=== PATIENT | female | born 1970 | race Caucasian/White ===

== ENCOUNTER 2024-11-03 11:10 | Emergency (ER) | payer OTHER, SELFPAY ==
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
--- OUTSIDE RECORDS SUMMARY | 2024-11-03 11:14 | XMS_ITS | Clinical Summary ---
Author Organization [facility] al Address [address] [place] [address] Care Team Providers Care Unionmelt Operator Name Role Phone James Vasquez MD Primary Care Provider Lucila Kapadia MD Unavailable [phone] Allergies No known active allergies Medications atorvastatin (LIPITOR) 40 mg tabletIndicatio ns:hyperlipidem ia Take 1 tablet (40 mg total) by mouth every morning 2 02/15/2019 Active buPROPion SR (WELLBUTRIN SR) 150 mg 12 hr tabletIndicatio ns:Anxiety with Depression Take 1 tablet (150 mg total) by mouth 2 (two) times a day Active calcium carbonate-vitam in D3 (Calcium 600 + D,3,) 1500 mg (600 mg elemental) -200 units per tabletIndicatio ns:Vitamin D Deficiency Take 2 tablets by mouth every morning Active multivitamin capsuleIndicati ons:Vitamin Deficiency Prevention Take 1 capsule by mouth every morning Active acetaminophen (TYLENOL) 500 mg tabletIndicatio ns:Encounter for cosmetic surgery Take 2 tablets (1,000 mg total) by mouth every 6 (six) hours as needed for pain 60 tablet 12/03/2022 Active Active Problems Problem Noted Date Diagnosed Date Encounter for cosmetic procedure 11/23/2022 Varicose veins of leg with pain, right 9 Overview (06/07/2019): Added automatically from request for surgery [id number] Fracture of nasal bone 02/29/2016 Nasal congestion 02/29/2016 Facial injury 02/28/2016 Facial pain 02/28/2016 Deviated nasal septum 02/28/2016 Uterine leiomyoma 11/21/2015 Benign neoplasm of skin 11/06/2011 Hyperlipidemia Encounters Date Type Department Care Team Description 10/25/2024 9:20 AM CDT Office Visit [facility] Endocrinology Metabolism and Lipid [address] [place] [address] [place] [address] Eduardo Stewart MD Macrocytosis (Primary Dx); Hypothyroidism, unspecified type; Abnormal thyroid exam 09/25/2024 12:26 PM CDT - 09/25/2024 11:59 PM CDT Hospital Encounter [address] [address] Discharge Disposition: Discharge to home or self care 09/25/2024 11:30 AM CDT Lab [facility] [place] - Lab Collection [address] [facility] [facility] [address] [facility] [address] [place] [address] from Last 3 Months Immunizations Immunization Administration Dates Next Due Influenza, Trivalent, Cell C ulture-based MDCK, Preservative Free, Antibiotic Free, Intramuscular 04/13/2024 Surgical History Surgery Date Site/Laterality Comments [place] DELIVERY ONLY 06/21/2001 - 06/20/2002 Section - (Added by TW Conv) OTHER SURGICAL HISTORY 06/21/2019 - 06/20/2020 venectomy Medical History Medical History Date Comments Hyperlipidemia 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 with pain, right 9 Added automatically from request for surgery [id number] Nasal congestion 02/29/2016 Deviated nasal septum 02/28/2016 Family History Medical History Relation Name Comments Hypertension Father Family history of hypertension - (Added by TW Conv) Stroke Maternal Grandmother Hypertension Mother Family history of hypertension - (Added by TW Conv) Anesthesia problems Neg Hx Breast cancer Neg Hx Ovarian cancer Neg Hx Thyroid cancer Neg Hx Relation Name Status Comments Father Maternal Grandmother Mother Social History Tobacco Use Types Packs/Day Years Used Date Smoking Tobacco: Never Smokeless Tobacco: Never Tobacco Cessation:Counseling Given: Not Answered Alcohol Use Standard Drinks/Week Comments Yes 0 (1 standard drink = 0.6 oz pur e alcohol) rare AUDIT-C Answer Date Recorded Q1: How often do you have a drink containing alc ohol? 2-4 times a month 12/02/2022 Q2: How many drinks containi ng alcohol do you have on a typical day when you are drinking? 1 or 2 12/02/2022 Q3: How often do you have si x or more drinks on one occasion? Never 12/02/2022 Personal Safety Answer Date Recorded Have you ever been in or are you currently in a harmful physical or emotional relationship or is someone making you feel afraid or unsafe? Denies 12/09/2022 Comments No Sex and Gender Information Value Date Recorded Sex Assigned at Not on file Legal Sex Female 12:32 PM CONTRACTS INTERN Gender Identity Not on file Sexual Orientation Not on file Obstetrics History Para Term AB IAB SAB Ectopic Multiple Livin g Live Births 1 1 1 Date Outcome GA Total Labor Labor/2nd/3rd Weight Sex Type Anes PTL Amelia A1 A5 Name Clin Term Last Filed Vital Signs Vital Sign Reading Time Taken Comments Blood Pressure 116/73 10/25/2024 9:27 AM CDT Pulse 72 10/25/2024 9:27 AM CDT Temperature 36.8 C (98.2 F) 10/25/2024 9:27 AM CDT Respiratory Rate 16 12/09/2022 11:29 AM CDT Oxygen Saturation 96% 12/09/2022 11:29 AM CDT Inhaled Oxygen Concentration - - Weight 63 kg (138 lb 12.8 oz) 10/25/2024 9:27 AM CDT Height 167.6 cm (5' 6 ) 10/25/2024 9:27 AM CDT Body Mass Index 22.4 10/25/2024 9:27 AM CDT Plan of Treatment Health Maintenance Due Date Last Done Comments Cervical Cancer Screening 1970 Colon Cancer Screening-Colonoscopy 1970 Depression Screening 1970 DTaP/Tdap/Td Vaccine (1 - Tdap) 1981 Hepatitis B Screening 1988 Regular Well Visit/Exam 18-64 1988 Zoster Vaccine (1 of 2) 2020 Covid-19 Vaccine ( season) 2024 05/11/2021, 07/04/2020, 06/17/2020 Breast Cancer Screening-Mammogram 04/04/2025 04/04/2024, 11/27/2022, 05/08/2021, Additional history exists Influenza Vaccine Completed 04/13/2024 Hepatitis C Screening Completed 09/25/2024 Pneumococcal vaccine <65 Aged Out No longer eligible based on patient's age to complete this topic Medical Devices Implanted Type Area Montessori Program Director Device Identifier Shelf Expiration Date Model / Serial / Lot [employer] 12.1cm High Strength Cohesive Plus Smooth P4.4cm Moderate Plus [id number] - [id number] - [id number] Implanted:Qty: 1 on 12/09/2022 by Lucila Kapadia MD at [facility] Breast Right: Breast [employer] 07/14/2024 [id number] P / [id number] / [employer] 12.1cm High Strength Cohesive Plus Smooth P4.4cm Moderate Plus [id number] - [id number] - [id number] Implanted:Qty: 1 on 12/09/2022 by Lucila Kapadia MD at [facility] Left: Breast [employer] 11/22/2025 [id number] / [id number] / Procedures Procedure Name Priority Date/Time Associated Diagnosis Comments EGFR Routine 09/25/2024 11:35 AM CDT DIFFERENTIAL AUTO Routine 09/25/2024 11: 35 AM CDT T3, FREE Routine 09/25/2024 11:35 AM CDT T4, FREE Routine 09/25/2024 11:35 AM CDT TSH Routine 09/25/2024 11:35 AM CDT LIPID PANEL Routine 09/25/2024 11:35 AM CDT COMPREHENSIVE METABOLIC PANEL Routine 09/25/2024 11:35 AM CDT CBC WITH AUTO DIFFERENTIAL Routine 09/25/2024 11:35 AM CDT HEPATITIS C ANTIBODY Routine 09/25/2024 11:35 AM CDT SCREENING MAMMOGRAM BILATERAL W RONAK W IMPLANTS Schedule Routine, Read Routine (OP Routine) 04/04/2024 4:12 PM CDT Screening mammogram, encounter for from Last 3 Months or Most Recently Relevant to Health Maintenance Results * eGFR (09/25/2024 11:35 AM CDT) eGFR >90 >=60 mL/min/1. 73 m2 Comment: Interpretive Data Reference Interval Normal >/= 90 mL/min/1.73m2 Mildly decreased* 60 - 89 mL/min/1.73m2 Mildly to moderately decreased 45 - 59 mL/min/1.73m2 Moderately to severely decreased 30 - 44 mL/min/1.73m2 Severely decreased 15 - 29 mL/min/1.73m2 Kidney Failure < 15 mL/min/1.73m2 *Relative to young adult level Estimated glomerular filtration rate is determined by the 2020 CKD-EPI equation recommended by the National Kidney Foundation (A Unifying Approach to GFR Estimation: Recommendations of the NKF-ASK Task Force on Reassessing the Inclusion of Race in Diagnosing Kidney Disease, JASN 2020). The CKD-EPI equation should not be used for patients with unstable renal function and has not been validated in children and those over 70. Current interpretive data was last reviewed 2021. Blood 09/25/2024 11:3 5 AM CDT 09/25/2024 1:22 PM CDT us Notinfile Unknown LAB BLOOD ORDERABLES Final Res ult [facility] [place] [address] * Differential, auto (09/25/2024 11:35 AM CDT) Neutrophil abs 3.31 1.50 - 6.50 K/cumm Imm gran abs 0.01 0.00 - 0.10 K/cumm [facility] Lymphocyte abs 1.60 0.80 - 3.30 K/cumm [facility] Monocyte abs 0.42 0.20 - 0.80 K/cumm [facility] Eosinophil abs 0.06 0.00 - 0.50 K/cumm [facility] Basophil abs 0.04 0.00 - 0.10 K/cumm [facility] Neutrophil pct 60.9 % [facility] Comment: Interpretive Data Percent cell count reference ranges are not reported, since discordance with absolute values may lead to misinterpretation of CBC data. Current Interpretive Data was last revised on 2017. Imm gran pct 0.2 % [facility] Comment: Interpretive Data Percent cell count reference ranges are not reported, since discordance with absolute values may lead to misinterpretation of CBC data. Current Interpretive Data was last revised on 2017. Lymphocyte pct 29.4 % [facility] Comment: Interpretive Data Percent cell count reference ranges are not reported, since discordance with absolute values may lead to misinterpretation of CBC data. Current Interpretive Data was last revised on 2017. Monocyte pct 7.7 % [facility] Comment: Interpretive Data Percent cell count reference ranges are not reported, since discordance with absolute values may lead to misinterpretation of CBC data. Current Interpretive Data was last revised on 2017. Eosinophil pct 1.1 % [facility] Comment: Interpretive Data Percent cell count reference ranges are not reported, since discordance with absolute values may lead to misinterpretation of CBC data. Current Interpretive Data was last revised on 2017. Basophil pct 0.7 % [facility] Comment: Interpretive Data Percent cell count reference ranges are not reported, since discordance with absolute values may lead to misinterpretation of CBC data. Current Interpretive Data was last revised on 2017. Blood 09/25/2024 11:3 5 AM CDT 09/25/2024 1:08 PM CDT us Notinfile Unknown LAB BLOOD ORDERABLES Final Res ult [facility] Department [place] [address] * (ABNORMAL) CBC with auto differential (09/25/2024 11:35 AM CDT) [facility] WBC 5.44 3.80 - 9.90 K/cumm Hgb 15.6(H) 11.9 - 15.5 g/dL [facility] Hct 46.5(H) 35.6 - 45.5 % [facility] Plt 222 150 - 400 K/cumm [facility] MPV 10.9 9.1 - 12.3 fL [facility] RBC 4.79 3.90 - 5.20 M/cumm [facility] MCV 97.1(H) 81.3 - 96.4 fL [facility] MCH 32.6 27.1 - 33.3 pg [facility] MCHC 33.5 32.3 - 35.7 g/dL [facility] RDW CV 12.9 11.1 - 14.9 % [facility] RDW SD 46.0 35.7 - 48.1 fL [facility] NRBC abs 0.00 0.00 - 0.01 K/cumm [facility] Blood 09/25/2024 11:3 5 AM CDT 09/25/2024 1:08 PM CDT us Notinfile Unknown LAB BLOOD ORDERABLES Final Res ult Performing Organization Address City/State/[facility] Co de Phone Number [facility] Department [place] [address] * Hepatitis C antibody Blood (09/25/2024 11:35 AM CDT) [facility] Hep C Ab Nonreactive Nonreactive Comment:Antibodies to HCV no t detected. Does NOT exclude the possibility of recent exposure to HCV. Current interpretive data was last revised on 22 Blood 09/25/2024 11:3 5 AM CDT 09/25/2024 1:09 PM CDT us Notinfile Unknown LAB MICROBIOLOGY - GENERAL ORD ERABLES Final [facility] [place] [address] * T3, free (09/25/2024 11:35 AM CDT) Free T3 2.0 2.0 - 4.4 pg/mL Blood 09/25/2024 11:3 5 AM CDT 09/25/2024 1:08 PM CDT us Notinfile Unknown LAB BLOOD ORDERABLES Final Res ult Performing Organization Address [facility] [place] [address] * TSH (09/25/2024 11:35 AM CDT) Thyroid Stimulating Hormone 0.64 0.30 - 4.20 mcIUnit/mL Blood 09/25/2024 11:3 5 AM CDT 09/25/2024 1:08 PM CDT us Notinfile Unknown LAB BLOOD ORDERABLES Final Res ult Performing Organization Address [facility] de Phone Number [facility] [place] [address] * (ABNORMAL) T4, free (09/25/2024 11:35 AM CDT) Free T4 0.87(L) 0.90 - 1.70 ng/dL Blood 09/25/2024 11:3 5 AM CDT 09/25/2024 1:08 PM CDT us Notinfile Unknown LAB BLOOD ORDERABLES Final Res ult Performing Organization Address [facility] Co de Phone Number [facility] [place] [address] * Lipid panel (09/25/2024 11:35 AM CDT) Cholesterol 169 30 - 199 mg/dL Comment: Interpretive Data Ages < or = 19 years Acceptable: <170 mg/dL Borderline high: 170-199 mg/dL High: >or= 200 mg/dL Ages > or = 20 years Desirable: <200 mg/dL Borderline high: 200-239 mg/dL High: >or= 240 mg/dL Literature References: 1. Expert Panel on Integrated Guidelines for Cardiovascular Health and Risk Reduction in Children and Adolescents. Pediatrics 2011;128:S213 2. NCEP Expert Panel. Circulation 2004;110:227 Current Interpretive Data was last revised on 2018. Triglycerides 51 <=149 mg/dL [facility] Comment: Interpretive Data Ages < or = 9 years Acceptable: <75 mg/dL Borderline high: 75-99 mg/dL High: >or= 100 mg/dL Ages 10 to 20 years Acceptable: <90 mg/dL Borderline high: 90-129 mg/dL High: >or= 130 mg/dL Ages > or = 20 years Desirable: <150 mg/dL Borderline high: 150-199 mg/dL High: 200-499 mg/dL Very high: >or= 499 mg/dL Literature References: 1. Expert Panel on Integrated Guidelines for Cardiovascular Health and Risk Reduction in Children and Adolescents. Pediatrics 2011;128:S213 2. NCEP Expert Panel. Circulation 2004;110:227 Current Interpretive Data was last revised on 2018. HDL 73 >=40 mg/dL [facility] Comment: Interpretive Data Ages < or = 19 years Acceptable: >45 mg/dL Borderline low: 40-45 mg/dL Low: <40 mg/dL Ages > or = 20 years Desirable: >or= 60 mg/dL Low: <40 mg/dL Literature References: 1. Expert Panel on Integrated Guidelines for Cardiovascular Health and Risk Reduction in Children and Adolescents. Pediatrics 2011;128:S213 2. NCEP Expert Panel. Circulation 2004;110:227 Current Interpretive Data was last revised on 2018. LDL, calculated 86 <=129 mg/dL [facility] Comment: Interpretive Data Ages < or = 19 years Acceptable: <110 mg/dL Borderline high: 110-129 mg/dL High: >or= 130 mg/dL Ages > or = 20 years Optimal: <100 mg/dL Near optimal: 100-129 mg/dL Borderline high: 130-159 mg/dL High: >160 mg/dL Calculated using the Brian LDL-C estimating equation. This equation was implemented on 2024. Prior to this date LDL-C was estimated using the Friedewald equation. Literature References: 1. Expert Panel on Integrated Guidelines for Cardiovascular Health and Risk Reduction in Children and Adolescents. Pediatrics 2011;128:S213 2. NCEP Expert Panel. Circulation 2004;110:227 3. Brian Moy et al. ALY Cardiol. 2020 October 19;5(5):540-548. doi: 10.1001/jamacardio.2020.0013 Current Interpretive Data was last revised on 2024. Non-HDL Cholesterol 96 mg/dL [facility] Comment: Interpretive Data Ages < or = 19 years Acceptable: <120 mg/dL Borderline high: 120-144 mg/dL High: >145 mg/dL Ages > or = 20 years When triglycerides are >200 mg/dL, Non-HDL cholesterol is a secondary target of therapy with treatment goals that are 30 mg/dL greater than the LDL cholesterol target. Literature References: 1. Expert Panel on Integrated Guidelines for Cardiovascular Health and Risk Reduction in Children and Adolescents. Pediatrics 2011;128:S213 2. NCEP Expert Panel. Circulation 2004;110:227 Current Interpretive Data was last revised on 2018. Chol/HDL ratio 2 [facility] Blood 09/25/2024 11:3 5 AM CDT 09/25/2024 1:08 PM CDT us Notinfile Unknown LAB BLOOD ORDERABLES Final Res ult [facility] Department [place] [address] * Comprehensive metabolic panel (09/25/2024 11:35 AM CDT) Sodium 143 135 - 145 mmol/L Potassium, pl 3.8 3.3 - 4.9 mmol/L [facility] Chloride 104 97 - 110 mmol/L [facility] CO2 31 22 - 32 mmol/L [facility] Anion gap 8 2 - 15 mmol/L [facility] BUN 9 6 - 25 mg/dL [facility] Creatinine 0.75 0.60 - 1.10 mg/dL [facility] Glucose 85 70 - 199 mg/dL [facility] Comment: Interpretive Data Fasting glucose >/= 126 mg/dl is diagnostic for diabetes. Fasting is defined as no caloric intake for at least 8 hours. Fasting glucose between 100 mg/dl to 125 mg/dl is diagnostic of prediabetes. In a patient with classic symptoms of hyperglycemia or hyperglycemic crisis, a random glucose >/= 200 mg/dl is diagnostic for diabetes. In the absence of unequivocal hyperglycemia, results should be confirmed by repeat testing. The classification and Diagnosis of Diabetes Diabetes Care 202; 46: S19-S40. Current interpretive data was last revised 2022. Calcium 9.2 8.5 - 10.3 mg/dL [facility] Bilirubin, total 0.5 0.1 - 1.2 mg/dL [facility] Protein, pl 7.4 6.5 - 8.5 g/dL [facility] Albumin 4.3 3.5 - 5.0 g/dL [facility] Alk phos 56 40 - 130 Units/L [facility] ALT 25 7 - 45 Units/L [facility] AST 28 10 - 45 Units/L [facility] Blood 09/25/2024 11:3 5 AM CDT 09/25/2024 1:08 PM CDT us Notinfile Unknown LAB BLOOD ORDERABLES Final Res ult [facility] Department [place] [address] * Screening Mammogram Bilateral W Ronak W Implants (04/04/2024 4:12 PM CDT) Anatomical Region Laterality Modality Breast Bilateral Mammography Narrative 04/07/2024 1:37 PM CDT Mammogram Technique: Bilateral Digital Breast Tomosynthesis, Bilateral C-view 2D Screening mammogram. Views obtained: bilateral craniocaudal; bilateral craniocaudal implant displaced; bilateral mediolateral oblique; and bilateral mediolateral oblique implant displaced. Computer Aided Detection was performed. Mammogram Findings: No prior films were compared. The breasts are extremely dense, which lowers the sensitivity of mammography. There are bilateral sub-pectoral silicone gel implants. There is no suspicious abnormality in either breast. Impression: There is no mammographic evidence of malignancy. Annual screening mammography is recommended. Consider breast MRI for supplemental screening given the patient's extremely dense breast tissue. OVERALL FINAL ASSESSMENT: BI-RADS CATEGORY 1: Negative. Procedure Note Luciana Zuluaga MD - 04/07/2024 Mammogram Technique: Bilateral Digital Breast Tomosynthesis, Bilateral C-view 2D Screening mammogram. Views obtained: bilateral craniocaudal; bilateralcraniocaudal implant displaced; bilateral mediolateral oblique; and bilateral mediolateral oblique implant displaced. Computer Aided Detection was performed. Mammogram Findings: No prior films were compared. The breasts are extremely dense, which lowers the sensitivity of mammography. There are bilateral sub-pectoral silicone gel implants. There is no suspicious abnormality in either breast. Impression: There is no mammographic evidence of malignancy. Annual screening mammography is recommended. Consider breast MRI for supplemental screening given the patient's extremely dense breasttissue. OVERALL FINAL ASSESSMENT: BI-RADS CATEGORY 1: Negative. us Self Screening Mammogram IMG MAMMO PROCEDURES Fi nal Result from Last 3 Months or Most Recently Relevant to Health Maintenance Insurance [employer] Member Subscriber Plan / Payer (Ef fective 2021-Present) Name:Dayami Romero Relation to Subscriber:Self Name:Dayami Romero Payer ID:[id number] (NAIC) Type:[facility] [employer] Address: [place] [phone] Member Subscriber Plan / Payer (Ef fective 2021-Present) Name:Dayami Romero Relation to Subscriber:Self Name:Dayami Romero Payer ID:[id number] (NAIC) Type:[employer] Address: [place] [phone] Care Teams Unionmelt Operator Relationship Specialty Start Date End Date James Vasquez MD PCP - General 09/16/16 Lucila Kapadia MD [address] [facility] [address] [place] [address] Referring Physician Plastic Surgery 12/09/22
--- OUTSIDE RECORDS SUMMARY | 2024-11-03 11:14 | XMS_ITS | Referral Summary ---
Author Organization [facility] al Address [address] [place] [address] Care Team Providers Care Devulcanizer Tender Name Role Phone James Vasquez MD Primary Care Provider Lucila Kapadia MD Unavailable [phone] Encounters Date Type Department Care Team Description 10/25/2024 9:20 AM CDT Office Visit [facility] Endocrinology Metabolism and Lipid [address] 13th [place] [address] [place] [address] Eduardo Stewart MD Macrocytosis (Primary Dx); Hypothyroidism, unspecified type; Abnormal thyroid exam 09/25/2024 12:26 PM CDT - 09/25/2024 11:59 PM CDT Hospital Encounter [facility] [address] [place] [address] Discharge Disposition: Discharge to home or self care 09/25/2024 11:30 AM CDT Lab [facility] - Lab Collection [address] [facility] [address] [place] [address] from Last 3 Months Allergies No known active allergies Medications atorvastatin [...] (06/07/2019): Added automatically from request for surgery [id number] Fracture of nasal bone 02/29/2016 Nasal congestion 02/29/2016 Facial injury 02/28/2016 Facial pain 02/28/2016 Deviated nasal septum 02/28/2016 Uterine leiomyoma 11/21/2015 Benign neoplasm of skin 11/06/2011 Hyperlipidemia Immunizations Immunization Administration Dates Next Due Influenza, Trivalent, Cell C ulture-based MDCK, Preservative Free, Antibiotic Free, Intramuscular 04/13/2024 Social History Tobacco Use Types Packs/Day Years [...] on file 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 Gender Identity Not on file Sexual Orientation Not on file Last Filed Vital Signs Vital Sign Reading [...] 10/25/2024 9:27 AM CDT Plan of Treatment Not on file Medical Devices Implanted Type Area Dispatch Lead Device Identifier Shelf Expiration Date Model / Serial / Lot [employer] 12.1cm High Strength Cohesive Plus Smooth P4.4cm Moderate Plus [id number] - [id number] - [id number] Implanted:Qty: 1 on 12/09/2022 by Lucila Kapadia MD at [facility] Breast Right: Breast [employer] 07/14/2024 [id number] P / [id number] / [employer] 12.1cm High Strength Cohesive Plus Smooth P4.4cm Moderate Plus [id number] - [id number] - [id number] Implanted:Qty: 1 on 12/09/2022 by Lucila Kapadia MD at [facility] Left: Breast [employer] 11/22/2025 [id number] P / [id number] / Procedures Procedure Name Priority Date/Time Associated [...] LAB BLOOD ORDERABLES Final Res ult [facility] Department [place] [address] * Differential, auto (09/25/2024 11:35 AM CDT) Neutrophil abs 3.31 1.50 - 6.50 K/cumm Imm gran abs 0.01 0.00 - 0.10 K/cumm [facility] Lymphocyte abs 1.60 0.80 - 3.30 K/cumm [facility] Monocyte abs 0.42 0.20 - 0.80 K/cumm [facility] Eosinophil abs 0.06 0.00 - 0.50 K/cumm [facility] Basophil abs 0.04 0.00 - 0.10 K/cumm [facility] Neutrophil pct 60.9 % [facility] Comment: Interpretive Data Percent cell count reference ranges are not reported, since discordance with absolute values may lead to misinterpretation of CBC data. Current Interpretive Data was last revised on 2017. Imm gran pct 0.2 % [facility] Comment: Interpretive Data Percent cell count reference ranges are not reported, since discordance with absolute values may lead to misinterpretation of CBC data. Current Interpretive Data was last revised on 2017. Lymphocyte pct 29.4 % [facility] Comment: Interpretive Data Percent cell count reference ranges are not reported, since discordance with absolute values may lead to misinterpretation of CBC data. Current Interpretive Data was last revised on 2017. Monocyte pct 7.7 % [facility] Comment: Interpretive Data Percent cell count reference ranges are not reported, since discordance with absolute values may lead to misinterpretation of CBC data. Current Interpretive Data was last revised on 2017. Eosinophil pct 1.1 % [facility] Comment: Interpretive Data Percent cell count reference ranges are not reported, since discordance with absolute values may lead to misinterpretation of CBC data. Current Interpretive Data was last revised on 2017. Basophil pct 0.7 % [facility] Comment: Interpretive Data Percent cell count reference ranges are not reported, since discordance with absolute values may lead to misinterpretation of CBC data. Current Interpretive Data was last revised on 2017. Blood 09/25/2024 11:3 5 AM CDT 09/25/2024 1:08 PM CDT us Notinfile Unknown LAB BLOOD ORDERABLES Final Res ult Performing Organization Address City/[facility]/ZIP Co de Phone Number [facility] Department [place] [address] * (ABNORMAL) CBC with auto differential (09/25/2024 11:35 AM CDT) WBC 5.44 3.80 - 9.90 K/cumm Hgb 15.6(H) 11.9 - 15.5 g/dL [facility] Hct 46.5(H) 35.6 - 45.5 % [facility] Plt 222 150 - 400 K/cumm [facility] MPV 10.9 9.1 - 12.3 fL [facility] RBC 4.79 3.90 - 5.20 M/cumm [facility] MCV 97.1(H) 81.3 - 96.4 fL [facility] MCH 32.6 27.1 - 33.3 pg [facility] MCHC 33.5 32.3 - 35.7 g/dL [facility] RDW CV 12.9 11.1 - 14.9 % [facility] RDW SD 46.0 35.7 - 48.1 fL [facility] NRBC abs 0.00 0.00 - 0.01 K/cumm [facility] Blood 09/25/2024 11:3 5 AM CDT 09/25/2024 1:08 PM CDT us Notinfile Unknown LAB BLOOD ORDERABLES Final Res ult [facility] [place] [address] * Hepatitis C antibody Blood (09/25/2024 11:35 AM CDT) Pathologist [facility] Hep C Ab Nonreactive Nonreactive Comment:Antibodies to HCV no t detected. Does NOT exclude the possibility of recent exposure to HCV. Current interpretive data was last revised on 22 Blood 09/25/2024 11:3 5 AM CDT 09/25/2024 1:09 PM CDT us Notinfile Unknown LAB MICROBIOLOGY - GENERAL ORD ERABLES Final Result Performing Organization Address City/[facility] Co de Phone Number [facility] [place] [address] * T3, free (09/25/2024 11:35 AM CDT) Free T3 2.0 2.0 - 4.4 pg/mL Blood 09/25/2024 11:3 5 AM CDT 09/25/2024 1:08 PM CDT us Notinfile Unknown LAB BLOOD ORDERABLES Final Res ult Performing Organization Address [facility] Co de Phone Number [facility] [place] [address] * TSH (09/25/2024 11:35 AM CDT) Thyroid Stimulating Hormone 0.64 0.30 - 4.20 mcIUnit/mL Blood 09/25/2024 11:3 5 AM CDT 09/25/2024 1:08 PM CDT us Notinfile Unknown LAB BLOOD ORDERABLES Final Res ult Performing Organization Address [facility] Co de Phone Number [facility] [place] [address] * (ABNORMAL) T4, free (09/25/2024 11:35 AM CDT) Free T4 0.87(L) 0.90 - 1.70 ng/dL Blood 09/25/2024 11:3 5 AM CDT 09/25/2024 1:08 PM CDT us Notinfile Unknown LAB BLOOD ORDERABLES Final Res ult [facility] Department [place] [address] * Lipid panel (09/25/2024 11:35 AM CDT) [...] on 2018. Triglycerides 51 <=149 mg/dL [facility] Comment: Interpretive Data Ages < or [...] revised on 2018. HDL 73 >=40 mg/dL [facility] Comment: Interpretive Data Ages < or [...] 2018. LDL, calculated 86 <=129 mg/dL [facility] Comment: Interpretive Data Ages < or = [...] 3. Brian Moy et al. ALY Cardiol. 2019October 19;5(5):540-548. doi: 10.1001/[email or web address].2020.0013 Current Interpretive Data was last revised on 2024. Non-HDL Cholesterol 96 mg/dL [facility] Comment: Interpretive Data Ages < or = [...] last revised on 2018. Chol/HDL ratio 2 [facility] Blood 09/25/2024 11:3 5 AM CDT 09/25/2024 1:08 PM CDT us Notinfile Unknown LAB BLOOD ORDERABLES Final Res ult [facility] Department [place] [address] * Comprehensive metabolic panel (09/25/2024 11:35 AM CDT) Sodium 143 135 - 145 mmol/L Potassium, pl 3.8 3.3 - 4.9 mmol/L [facility] Chloride 104 97 - 110 mmol/L [facility] CO2 31 22 - 32 mmol/L [facility] Anion gap 8 2 - 15 mmol/L [facility] BUN 9 6 - 25 mg/dL [facility] Creatinine 0.75 0.60 - 1.10 mg/dL [facility] Glucose 85 70 - 199 mg/dL [facility] Comment: Interpretive Data Fasting glucose [...] classification and Diagnosis of Diabetes Diabetes Care 2021; 46: S19-S40. Current interpretive data was last revised 2022. Calcium 9.2 8.5 - 10.3 mg/dL [facility] Bilirubin, total 0.5 0.1 - 1.2 mg/dL [facility] Protein, pl 7.4 6.5 - 8.5 g/dL [facility] Albumin 4.3 3.5 - 5.0 g/dL [facility] Alk phos 56 40 - 130 Units/L [facility] ALT 25 7 - 45 Units/L [facility] AST 28 10 - 45 Units/L [facility] Blood 09/25/2024 11:3 5 AM CDT 09/25/2024 1:08 PM CDT us Notinfile Unknown LAB BLOOD ORDERABLES Final Res ult [facility] [address] [facility] Department [place] [address] * Screening Mammogram Bilateral W Ronak W [...] Most Recently Relevant to Health Maintenance Insurance [facility] EM[employer]YE[employer] [facility] HMO/PPO Address: [address] [place] [address] [facility] HMO/PPO Address: [address] [address] [place] [address] [facility] HMO/PPO Address: [address] [place] [address] Care Teams Devulcanizer Tender Relationship Specialty Start Date End Date James Vasquez MD PCP - General 09/16/16 Lucila Kapadia MD [address] [address] Referring Physician Plastic Surgery 12/09/22
[2024-11-03 11:26] VITALS: BP 150/98; PULSE 72; RESP 16; TEMP 36.4; O2SAT 100
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
--- OUTSIDE RECORDS SUMMARY | 2024-11-03 13:33 | XMS_ITS | Referral Summary ---
Author Organization [facility] al Address [address] [place] [address] Care Team Providers Care Supply Chain Associate Name Role Phone James Vasquez MD Primary Care Provider [phone] Lucila Kapadia MD Unavailable [phone] Encounters Date Type Department Care Team Description 10/25/2024 9:20 AM CDT Office Visit [facility] Endocrinology Metabolism and Lipid [address] [place] [address] [place] [address] Eduardo Stewart MD Macrocytosis (Primary Dx); Hypothyroidism, unspecified type; Abnormal thyroid exam 09/25/2024 12:26 PM CDT - 09/25/2024 11:59 PM CDT Hospital Encounter [facility] [address] [place] [address] Discharge Disposition: Discharge to home or self care 09/25/2024 11:30 AM CDT Lab [facility] - Lab Collection [address] [facility] [place] [address] from Last 3 Months Allergies No known [...] (06/07/2019): Added automatically from request for surgery [id number] Fracture of nasal bone 02/29/2016 Nasal congestion [...] on file 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 Gender Identity Not on file Sexual Orientation [...] on file Medical Devices Implanted Type Area Roll Up Helper Device Identifier Shelf Expiration Date Model / Serial / Lot [employer] 12.1cm High Strength Cohesive Plus Smooth P4.4cm Moderate Plus [id number] - [id number] - [id number] Implanted:Qty: 1 on 12/09/2022 by Lucila Kapadia MD at [facility] Breast Right: Breast [employer] 07/14/2024 [id number] P / [id number] / [employer] 12.1cm High Strength Cohesive Plus Smooth P4.4cm Moderate Plus [id number] - [id number] - [id number] Implanted:Qty: 1 on 12/09/2022 by Lucila Kapadia MD at [facility] Left: Breast [employer] 11/22/2025 [id number] P / [id number] / Procedures Procedure Name Priority Date/Time Associated [...] LAB BLOOD ORDERABLES Final Res ult [facility] [place] [address] * Differential, auto (09/25/2024 11:35 AM CDT) Neutrophil abs 3.31 1.50 - 6.50 K/cumm Imm gran abs 0.01 0.00 - 0.10 K/cumm [facility] Lymphocyte abs 1.60 0.80 - 3.30 K/cumm [facility] Monocyte abs 0.42 0.20 - 0.80 K/cumm [facility] Eosinophil abs 0.06 0.00 - 0.50 K/cumm [facility] Basophil abs 0.04 0.00 - 0.10 K/cumm [facility] Neutrophil pct 60.9 % [facility] Comment: Interpretive Data Percent cell count reference ranges are not reported, since discordance with absolute values may lead to misinterpretation of CBC data. Current Interpretive Data was last revised on 2017. Imm gran pct 0.2 % [facility] Comment: Interpretive Data Percent cell count reference ranges are not reported, since discordance with absolute values may lead to misinterpretation of CBC data. Current Interpretive Data was last revised on 2017. Lymphocyte pct 29.4 % [facility] Comment: Interpretive Data Percent cell count reference ranges are not reported, since discordance with absolute values may lead to misinterpretation of CBC data. Current Interpretive Data was last revised on 2017. Monocyte pct 7.7 % [facility] Comment: Interpretive Data Percent cell count reference ranges are not reported, since discordance with absolute values may lead to misinterpretation of CBC data. Current Interpretive Data was last revised on 2017. Eosinophil pct 1.1 % [facility] Comment: Interpretive Data Percent cell count reference ranges are not reported, since discordance with absolute values may lead to misinterpretation of CBC data. Current Interpretive Data was last revised on 2017. Basophil pct 0.7 % [facility] Comment: Interpretive Data Percent cell count reference ranges are not reported, since discordance with absolute values may lead to misinterpretation of CBC data. Current Interpretive Data was last revised on 2017. Blood 09/25/2024 11:3 5 AM CDT 09/25/2024 1:08 PM CDT us Notinfile Unknown LAB BLOOD ORDERABLES Final Res ult Performing Organization Address City/[facility]/ZIP Co de Phone Number [facility] [place] [address] * (ABNORMAL) CBC with auto differential (09/25/2024 11:35 AM CDT) WBC 5.44 3.80 - 9.90 K/cumm Hgb 15.6(H) 11.9 - 15.5 g/dL [facility] Hct 46.5(H) 35.6 - 45.5 % [facility] Plt 222 150 - 400 K/cumm [facility] MPV 10.9 9.1 - 12.3 fL [facility] RBC 4.79 3.90 - 5.20 M/cumm [facility] MCV 97.1(H) 81.3 - 96.4 fL [facility] MCH 32.6 27.1 - 33.3 pg [facility] MCHC 33.5 32.3 - 35.7 g/dL [facility] RDW CV 12.9 11.1 - 14.9 % [facility] RDW SD 46.0 35.7 - 48.1 fL [facility] NRBC abs 0.00 0.00 - 0.01 K/cumm [facility] Blood 09/25/2024 11:3 5 AM CDT 09/25/2024 1:08 PM CDT us Notinfile Unknown LAB BLOOD ORDERABLES Final Res ult [facility] [place] [address] * Hepatitis C antibody Blood (09/25/2024 11:35 AM CDT) Pathologist [facility] Hep C Ab Nonreactive Nonreactive Comment:Antibodies to HCV no t detected. Does NOT exclude the possibility of recent exposure to HCV. Current interpretive data was last revised on 22 Blood 09/25/2024 11:3 5 AM CDT 09/25/2024 1:09 PM CDT us Notinfile Unknown LAB MICROBIOLOGY - GENERAL ORD ERABLES Final Result Performing Organization Address City/[facility] Co de Phone Number [facility] [place] [address] * T3, free (09/25/2024 11:35 AM CDT) Free T3 2.0 2.0 - 4.4 pg/mL Blood 09/25/2024 11:3 5 AM CDT 09/25/2024 1:08 PM CDT us Notinfile Unknown LAB BLOOD ORDERABLES Final Res ult Performing Organization Address [facility] Co de Phone Number [facility] [place] [address] * TSH (09/25/2024 11:35 AM CDT) Thyroid Stimulating Hormone 0.64 0.30 - 4.20 mcIUnit/mL Blood 09/25/2024 11:3 5 AM CDT 09/25/2024 1:08 PM CDT us Notinfile Unknown LAB BLOOD ORDERABLES Final Res ult Performing Organization Address [facility] Co de Phone Number [facility] [place] [address] * (ABNORMAL) T4, free (09/25/2024 11:35 AM CDT) Free T4 0.87(L) 0.90 - 1.70 ng/dL Blood 09/25/2024 11:3 5 AM CDT 09/25/2024 1:08 PM CDT us Notinfile Unknown LAB BLOOD ORDERABLES Final Res ult [facility] [place] [address] * Lipid panel (09/25/2024 11:35 AM CDT) [...] on 2018. Triglycerides 51 <=149 mg/dL [facility] Comment: Interpretive Data Ages < or = [...] on 2018. HDL 73 >=40 mg/dL [facility] Comment: Interpretive Data Ages < or = [...] last revised on 2018. Chol/HDL ratio 2 [facility] Blood 09/25/2024 11:3 5 AM CDT 09/25/2024 1:08 PM CDT us Notinfile Unknown LAB BLOOD ORDERABLES Final Res ult [facility] [place] [address] * Comprehensive metabolic panel (09/25/2024 11:35 AM CDT) Sodium 143 135 - 145 mmol/L Potassium, pl 3.8 3.3 - 4.9 mmol/L [facility] Chloride 104 97 - 110 mmol/L [facility] CO2 31 22 - 32 mmol/L [facility] Anion gap 8 2 - 15 mmol/L [facility] BUN 9 6 - 25 mg/dL [facility] Creatinine 0.75 0.60 - 1.10 mg/dL [facility] Glucose 85 70 - 199 mg/dL [facility] Comment: Interpretive Data Fasting glucose >/= 126 [...] Calcium 9.2 8.5 - 10.3 mg/dL [facility] Bilirubin, total 0.5 0.1 - 1.2 mg/dL [facility] Protein, pl 7.4 6.5 - 8.5 g/dL [facility] Albumin 4.3 3.5 - 5.0 g/dL [facility] Alk phos 56 40 - 130 Units/L [facility] ALT 25 7 - 45 Units/L [facility] AST 28 10 - 45 Units/L [facility] Blood 09/25/2024 11:3 5 AM CDT 09/25/2024 1:08 PM CDT us Notinfile Unknown LAB BLOOD ORDERABLES Final Res ult [facility] One [facility] [place] [address] * Screening Mammogram Bilateral W Ronak W [...] Most Recently Relevant to Health Maintenance Insurance [facility] [employer] [facility] H[facility]/PPO Address: [address] [place] [address] [facility] H[employer]/PPO Address: [address] [address] [place] [address] [facility] H[facility]/PPO Address: [address] [place] [address] Care Teams Supply Chain Associate Relationship Specialty Start Date End Date James Vasquez MD PCP - General 09/16/16 Lucila Kapadia MD [address] [address] Referring Physician Plastic Surgery 12/09/22
--- OUTSIDE RECORDS SUMMARY | 2024-11-03 13:33 | XMS_ITS | Data Portability ---
Author Organization [facility] Address [address] [place] [address] Care Team Providers Care Ribbon Cutter Name Role Phone АННА FISCHER Primary Care Provider Assessment Encounter Date Assessment Date Assessment LastModified by Organization Details LastModified Time 03/25/2022 03/25/2022 Annual gynecological exam performed. Patient will come back in a year unless there are new symptoms. Not available 03/25/2022 18:27:40 06/30/2023 06/30/2023 Annual gynecological exam performed. Patient will come back in a year unless there are new symptoms. Not available 06/30/2023 17:21:17 Plan of Treatment Reminders Order Date Submit Date Provider Last Modified By Organization Details Last Modified Time Details Appointments None recorded. Lab hormone panel, serum or plasma 2023 024 [facility] (Lab), [address], [place], [address], 4 08:15:15 hormone panel, serum or plasma 2021 022 [facility] (Lab), [address], [place], [address], 2 22:49:53 testosteron e free/testos terone total, ratio, serum 2021 022 [facility] (Lab), [address], [place], [address], 22:49:54 progesteron e, serum 2021 [facility] (Lab), [address], [place], [address], 22:49:53 Referral None recorded. Procedures None recorded. Surgeries None recorded. Imaging None recorded. Medication Orders estradiol 1 mg tablet 2023 024 [email or web address] [facility] [address] [place], [address], 18:21:44 testosteron e cypionate 100 mg/mL intramuscul ar oil 2021 [facility] [address] [place], [address], 19:38:01 Patient TargetsNo targets recorded. Patient InstructionsNo instructions recorded. Reason for Referral None Reported. Results Created Date Observation Date Name Description Value Unit Range Abnormal Flag Note LastModifiedBy Organization Detail LastModifiedTime 03/25/2003/25/2022 IMAGE GUIDE D PAP AND HPV REGAR DLESS image guided Pap, HPV regardless of Pap result SEE RESULT S BELOW CASE REPOR T: Cytol ogy Gynec ologi georgina Repor t Case: [id number] Autho rialexusn g Provi desiree: Marii Edwards MD Colle cted: 03/25 190 Order ing Locat ion: [place] Patho logy Recei corina: 03/26 194 First Scree n: Nicolle Cameron ica Rescr een: Brenda anLolis Speci men: Scree sandi Pap - Image d, Cervi x STATE MENT OF ADEQU ACY: Satis facto ry for evalu ation Trans forma tion zone compo nent absen t The absen ce of an endoc ervic al compo nent was confi rmed by an addit ional scree ner. FINAL DIAGN OSIS: Negat robert for Intra epith elial Henrique caban or Malig jojo (NIL) . Elect yung hou dillon d by Lolis Thompson on 04/01 at 7:02 PM ----- ----- ----- ----- ----- ----- ----- ----- ----- ----- ----- ----- ----- ----- ----- ----- ----- ---- HPV RESUL TS: HPV mRNA E6/E7 : No HPV mRNA Detec phyllis NOTE: This high risk HPV mRNA assay detec ts fourt een high- risk HPV types (16, 18, 31, 33, 35, 39, 45, 51, 52, 56, 58, 59, 66, 68) witho ut diffe renti ation . COMME NT: Note: This speci men was revie wed by a Cytot echno logis t and/o r Patho logis t (as indic ated in this repor t) after evalu ation using the Thinp rep Imagi ng Syste m. [facility] MAT[facility] N: Menst rual Statu s: LMP (if appli cable ): Clini georgina Histo ry/Pr eviou s Pap: Type of Neopl kelton (if appli cable ): Signi fican t Clini georgina Findi ngs: Other Histo ry: Hormo rudy (if appli cable ): PAP EDUCA JESSICA L NOTE: The Pap Test is a scree sandi test with an inher ent false negat robert rate. Liqui d-bas ed sampl ing may decre ase, but will not elimi ariane, false negat robert resul ts. A negat robert resul t does not precl ude the prese nce and/o r devel opmen t of disea se, since the prese nce of abnor mal cells in the sampl e depen ds on the locat ion of the lesio n and sampl ing techn ique. Geovany nued regul ar scree sandi is the best metho d of cance r preve ntion . If repor phyllis cytol ogic findi ng do not corre late with physi georgina and/o r histo rical findi ngs, fanta akins inves tigat ion is recom shawn d, as zarinai trevor funez nted. Not Available [facility] [address] [place], [address], 04/01/2022 20:05:18 03/25/20 22 03/25/2022 PROGE STERO NE progesterone 0.22 NG/mL This assay was perfo rmed using [employer] Cor[employer] ratio n reage nts and test kits. Value s obtai larissa with other assay metho ds or kits canno t be used inter [facility] . Femal e Proge stero ne Range s: Folli cular phase 0.06- 0.89 ng/mL Ovula tion phase 0.12- 12.00 ng/mL Lutea l phase 1.83- 23.90 ng/mL Postm enopa usal< 0.05- 0.13 ng/mL Healt hy Pregn ant Women 1st Trime ster1 1.0-4 4.30 2nd Trime ster2 5.40- 83.30 3rd Trime ster5 8.70- 214.0 0 Not Available [facility] [address] [place] [address], [address], 04/01/2022 22:49:52 03/25/20 22 03/25/2022 FSH, LH, ESTRA DIOL estradiol 108.0 pg/mL This assay was perfo rmed using [employer] ratio n reage nts and test kits. Value s obtai larissa with other assay metho ds or kits canno t be used inter [facility] . Femal e Estra diol Range s: Folli cular phase 12.4- 233 pg/mL Ovula tion phase 41.0- 398 pg/mL Lutea l phase 22.3- 341 pg/mL Postm enopa usal< 5-138 pg/mL Healt hy Pregn ant Women 1st Trime ster1 54-32 43 pg/mL 2nd Trime ster1 561-2 1280 pg/mL 3rd Trime ster8 525-> 71228 pg/mL Not Available [facility] Infect[facility] [address] [place], [place] [address], [place], [address], 04/01/2022 22:49:53 03/25/20 22 03/25/2022 FSH, LH, ESTRA DIOL FSH 42.1 mIU/m L This assay was perfo rmed using [employer] ratio n reage nts and test kits. Value s obtai larissa with other assay metho ds or kits canno t be used inter [facility] . Femal es Folli cular : 3.5-1 2.5 mIU/m L Ovula tion: 4.7-2 1.5 mIU/m L Lutea l: 1.7-7 .7 mIU/m L Postm enopa use: 25.8- 134.8 mIU/m L Not Available [facility] [address] [place], [address], 04/01/2022 22:49:53 03/25/20 22 03/25/2022 FSH, LH, ESTRA DIOL LH 43.7 mIU/m L This assay was perfo rmed using [employer] ratio n reage nts and test kits. Value s obtai larissa with other assay metho ds or kits canno t be used inter [facility] . Femal es Mid-F ollic ular: 2.4-1 2.6 mIU/m L Mid-C ycle: 14.0- 95.6 mIU/m L Mid-L uteal : 1.0-1 1.4 mIU/m L Postm enopa use: 7.7-5 8.5 mIU/m L Not Available [facility] [address] [place], [address], 04/01/2022 22:49:53 03/25/20 22 03/25/2022 TESTO STERO NE, FREE( DIALY SIS) AND TOTAL (LC/M S/MS) testosterone , total 24 NG/dL 2-45 For addit ional infor eulogio craft refer to http: //torey caban.que stdia gnost ics.c om/fa q/Tot [facility] (This link is being provi ded for infor [facility] nal/ educa jessica l purpo ses only. ) This test was devel oped and its jennifer tical perfo rmanc e leticia cteri stics have been deter mined by [employer]. It has not been clear ed or appro corina by the FDA. This assay has been valid ated pursu ant to the CLIA regul ation s and is used for clini georgina purpo ses. Not Available [facility] [address] [place], [address], 04/01/2022 22:49:53 03/25/20 22 03/25/2022 TESTO STERO NE, FREE( DIALY SIS) AND TOTAL (LC/M S/MS) testosterone , free 1.2 pg/mL 0.1-6. 4 This test was devel oped and its jennifer tical perfo rmanc e leticia cteri stics have been deter mined by [employer]. It has not been clear ed or appro corina by the FDA. This assay has been valid ated pursu ant to the CLIA regul ation s and is used for clini georgina purpo ses. Perfo rming Organ izati on [facility] n: Site ID: [id number] Name: [employer] Addre ss: [id number] [facility] [place] [address] Direc tor: Juanis virk M.D. Not Available [facility] [address] [place], [address], 04/01/2022 22:49:53 06/30/19 24 06/30/2023 IMAGE GUIDE D PAP AND HPV REGAR DLESS image guided Pap, HPV regardless of Pap result SEE RESULT S BELOW CASE REPOR T: Cytol ogy Gynec ologi georgina Repor t Case: [id number] Autho claudette g Provi desiree: Marii Edwards MD Colle cted: 06/30 1708 Order ing Locat ion: [place] Patho logy Recei corina: 07/01 0628 First Scree n: Nonoe torre, Satnamam ed, CT Rescr een: Astrid Fritz ret, CT Speci men: Rex junior Pap - Image d, Cervi x STATE MENT OF ADEQU ACY: UNSAT ISFAC TORY SPECI MEN FINAL DIAGN OSIS: Unsat isfac tory for evalu ation . Inade quate squam ous epith elial compo nent for diagn osis. Elect yung ameya dillon d by Astrid Fritz ret, CT on 2023 at 8:24 AM ----- ----- ----- ----- ----- ----- ----- ----- ----- ----- ----- ----- ----- ----- ----- ----- ----- ---- HPV RESUL TS: HPV mRNA E6/E7 : No HPV mRNA Detec phyllis NOTE: This high risk HPV mRNA assay detec ts fourt een high- risk HPV types (16, 18, 31, 33, 35, 39, 45, 51, 52, 56, 58, 59, 66, 68) witho ut diffe renti ation . COMME NT: This speci men was revie wed by a Cytot echno logis t and/o r Patho logis t (as indic ated in this repor t) after evalu ation using the Thinp rep Imagi ng Syste m. CL[facility] INFOR MATIO N: Menst rual Statu s: LMP (if appli cable ): Clini georgina Histo ry/Pr eviou s Pap: Type of Neopl kelton (if appli cable ): Moniquei christiane t Clini georgina Findi ngs: Other Histo ry: Hormo rudy (if appli cable ): Not Available [facility] (Lab) [address], [place], [address], 07/02/2023 09:28:29 07/19/19 24 07/19/2023 IMAGE GUIDE D PAP AND HPV REGAR DLESS image guided Pap, HPV regardless of Pap result SEE RESULT S BELOW CASE REPOR T: Cytol ogy Gynec ologi georgina Repor t Case: [id number] Autho claudette santoyo Provi desiree: Marii Edwards MD Colle cted: 07/19 1522 Order ing Locat ion: [place] Patho logy Recei corina: 07/20 0724 First Scree n: Elizabeth Collins , CT Speci men: Rex junior Pap - Image d, Cervi x STATE MENT OF ADEQU ACY: Satis facto ry for evalu ation Trans forma tion zone compo nent prese nt FINAL DIAGN OSIS: Negat robert for Intra epith elial Lesio n or Dutch uribe (NIL) . Elect yung carranza d by Elizabeth Collins , [place] on 2023 at 7:47 AM ----- ----- ----- ----- ----- ----- ----- ----- ----- ----- ----- ----- ----- ----- ----- ----- ----- ---- HPV RESUL TS: HPV mRNA E6/E7 : No HPV mRNA Detec phyllis NOTE: This high risk HPV mRNA assay detec ts fourt een high- risk HPV types (16, 18, 31, 33, 35, 39, 45, 51, 52, 56, 58, 59, 66, 68) witho ut diffe renti ation . COMME NT: This speci men was revie wed by a Cytot echno logis t and/o r Patho logis t (as indic ated in this repor t) after evalu ation using the Thinp rep Imagi ng Syste m. CL[facility] INFOR MATIO N: Menst rual Statu s: LMP (if appli cable ): Clini georgina Histo ry/Pr eviou s Pap: Type of Neopl kelton (if appli cable ): Signi fican t Clini georgina Findi ngs: Other Histo ry: Hormo rudy (if appli cable ): PAP EDUCA JESSICA L NOTE: The Pap Test is a scree sandi test with an inher ent false negat robert rate. Liqui d-bas ed sampl ing may decre ase, but will not elimi ariane, false negat robert resul ts. A negat robert resul t does not precl ude the prese nce and/o r devel opmen t of disea se, since the prese nce of abnor mal cells in the sampl e depen ds on the locat ion of the lesio n and sampl ing techn ique. Geovany nued regul ar scree sandi is the best metho d of cance r preve ntion . If repor phyllis cytol ogic findi ng do not corre late with physi georgina and/o r histo rical findi ngs, furth er inves tigat ion is recom shawn d, as clini trevor warrrobyn nted. Not Available [facility] (Lab) [address] [facility], [place], [address], 07/21/2023 08:51:53 07/29/19 24 07/29/2023 FSH, LH, ESTRA DIOL estradiol <5.0 pg/mL This assay was perfo rmed using [employer] ratio n reage nts and test kits. Value s obtai larissa with other assay metho ds or kits canno t be used inter [facility] . Femal e Estra diol Range s: Folli cular phase 12.4- 233 pg/mL Ovula tion phase 41.0- 398 pg/mL Lutea l phase 22.3- 341 pg/mL Postm enopa usal< 5-138 pg/mL Healt hy Pregn ant Women 1st Trime ster1 54-32 43 pg/mL 2nd Trime ster1 561-2 1280 pg/mL 3rd Trime ster8 525-> 33599 pg/mL Not Available [facility] (Lab) [address], [place], [address], 07/30/2023 08:15:15 07/29/19 24 07/29/2023 FSH, LH, ESTRA DIOL FSH 69.2 mIU/m L This assay was perfo rmed using [employer] ratio n reage nts and test kits. Value s obtai larissa with other assay metho ds or kits canno t be used inter [facility] . Femal es Folli cular : 3.5-1 2.5 mIU/m L Ovula tion: 4.7-2 1.5 mIU/m L Lutea l: 1.7-7 .7 mIU/m L Postm enopa use: 25.8- 134.8 mIU/m L Not Available [facility] (Lab) [address] [place], [address], 07/30/2023 08:15:15 07/29/19 24 07/29/2023 FSH, LH, ESTRA DIOL LH 41.5 mIU/m L This assay was perfo rmed using [employer] ratio n reage nts and test kits. Value s obtai larissa with other assay metho ds or kits canno t be used inter [facility] . Femal es Mid-F ollic ular: 2.4-1 2.6 mIU/m L Mid-C ycle: 14.0- 95.6 mIU/m L Mid-L uteal : 1.0-1 1.4 mIU/m L Postm enopa use: 7.7-5 8.5 mIU/m L Not Available [facility] (Lab) [address] [place], [address], 07/30/2023 08:15:15 07/29/19 24 07/29/2023 SURGI GE[facility]GINA PATHO LOGY surgical pathology SEE RESULT S BELOW CASE REPOR T: Surgi georgina Patho logy Repor t Case: [id number] Autho claudette santoyo Provi desiree: Marii Edwards MD Colle cted: 07/29 1636 Order ing Locat ion: [place] Patho logy Recei corina: 07/30 0214 Patho logis t: Patricio sanders , Anali Funez MD Speci men: Endom etriu m, Endom etria l curet tings FINAL DIAGN OSIS: Endom etriu m, curet tage: -Inac tive endom etriu m with focal decid ualiz ed torres a. -Hype rplas ia and carci noma are not ident ified . Elect yung malik by Patricio sanders , Anali Funez MD on 024 at 4:37 PM ----- ----- ----- ----- ----- ----- ----- ----- ----- ----- ----- ----- ----- ----- ----- ----- ----- ---- COMME NT: The findi ngs in the endom etriu m are staci tible with exoge nous hormo ne effec t. Clini georgina corre latio n is recom shawn d. CLINI [facility] INFOR MATIO N: n93.9 MICRO SCOPI C DESCR IPTIO N: A micro scopi c exami natio n was perfo rmed. GROSS DESCR IPTIO N: A. Endom etriu m. The speci men is label ed with the patie nt's name, demog maryse campos and endom etria l curet tings . Recei corina in forma elie is a 4.0 x 2.0 x 0.2 [address] gate of gant-b rown tissu e and blood clot. The entir e speci men is submi tted in 2 casse ttes. Gross ed by Rosales Lieberman Not Available [facility] (Lab) [address], [place], [address], 07/30/2023 17:40:48 07/29/19 24 07/29/2023 pregn shantelle test, urine HCG negati ve Not Available [place] [address], [place], [address], 07/29/2023 17:16:35 Result Notes None recorded. Problems Name Problem SNOMED Code Status Onset Date Resolution Date Notes Provider Name and Address Organization Details Recorded Time Menopause present 140817097 Active 2019 Menopausal and female climacteri c states;Rec orded Elsewhere: No Locatio n: [facility] Nakita rce: EHR Chroni c: N Practice ID: [id number] Billrobyn ble Time: 08:30:00 AM Not Available [facility] 14:44:31 Problem Notes None recorded. Procedures Surgical History Date Name Laterality Status Provider Name and Address Organization Details Recorded Time 07/29/19 24 Hysteroscopy completed Leonardo Edwards MD [address], [place], [address], [facility] 07/29/2023 14:55:07 07/29/19 24 Hysteroscopy completed [facility] 07/29/2023 14:15:12 07/19/19 24 Date of Last Pap Smear completed [facility] 07/19/2023 10:38:27 12/20/19 23 Breast augmentation w/implt completed [facility] 06/30/2023 17:30:00 11/20/19 23 Date of Last Mammogram completed [facility] 06/30/2023 17:29:11 Imaging Results None recorded. Procedure Notes None recorded. Medical Equipment None Reported. Allergies No known drug allergies Medications Name Sig Start Date Stop Date Status Note LastModified by Organization Details LastModified Time celecoxib 200 mg capsule TAKE ONE CAPSULE BY MOUTH THE EVENING BEFORE SURGERY AND THEN ONE CAPSULE TWICE DAILY FOR 7 DAYS 06/30 completed Not Available Not Available Not Available cyclobenz aprine 10 mg tablet TAKE 1 TABLET BY MOUTH UP TO THREE TIMES DAILY NEEDED FOR MUSCLE SPASM 06/30 completed Not Available Not Available Not Available Mirena 21 mcg/24 hr (up to 8 years) 52 mg intrauter ine device Take by intraute rine route. 08/05 completed Not Available Not Available Not Available atorvasta tin 40 mg tablet TAKE 1 TABLET BY MOUTH ONCE DAILY active Not Available Not Available No t Available bupropion HCl SR 150 mg tablet,12 hr sustained -release TAKE 1 TABLET BY MOUTH TWICE DAILY active Not Available Not Available No t Available Prozac 40 mg capsule take 1 capsule (40MG) by oral route every day in the morning 10/28 completed Prescrib ed Elsewher e: Yes Loca tion: [facility] odify By: [email or web address] trick En counter DateTime : 04/16/20 11 10:30:00 AM Not Available Not Available Not Available ibuprofen 800 mg tablet Take 1 tablet 2 hours before the procedur e. 08/05 completed Not Available Not Available Not Available hydrocodo ne 5 mg-acetam inophen 325 mg tablet TAKE 1 TABLET BY MOUTH EVERY 6 HOURS NEEDED FOR PAIN. ALTERNAT E THIS MEDICATI ON WITH TYLENOL, TAKING EITHER MEDICATI ON EVERY 6 HOURS, NOT TOGETHER 06/30 completed Not Available Not Available Not Available metronida zole 0.75 % (37.5 mg/5 gram) vaginal gel Insert 1 applicat orful every day by vaginal route for 5 days. 03/25 completed Not Available Not Available Not Available testoster one cypionate 100 mg/mL intramusc ular oil INJECT 0.2ML EVERY 4 WEEKS BY INTRAMUS CULAR ROUTE active Not Available Not Available No t Available ciproflox acin 500 mg tablet TAKE 1 TABLET BY MOUTH TWICE DAILY 06/30 completed Not Available Not Available Not Available ondansetr on 8 mg disintegr ating tablet TAKE 1 TABLET BY MOUTH TWO HOURS BEFORE PROCEDUR E. 08/05 completed Not Available Not Available Not Available Lipitor 20 mg tablet take 1 tablet by oral route every day 11/20 completed Prescrib ed Elsewher e: Yes Loca tion: [facility] odify By: [email or web address] trick En counter DateTime : 10/29/19 16 01:30:00 PM Not Available Not Available Not Available alprazola m 0.5 mg tablet TAKE 1 TABLET BY MOUTH TWO HOURS BEFORE THE PROCEDUR E 08/05 completed Not Available Not Available Not Available estradiol 1 mg tablet TAKE 1 TABLET BY MOUTH ONCE DAILY DIRECTED 2023 active Not Available Not Available Not Avai lable oxycodone -acetamin ophen 10 mg-325 mg tablet TAKE 1 TABLET BY MOUTH 2 HOURS BEFORE PROCEDUR E 08/05 completed Not Available Not Available Not Available hydroxyzi ne HCl 25 mg tablet TAKE 1 TABLET BY MOUTH NEEDED FOR ANXIETY 06/30 completed Not Available Not Available Not Available Prozac 10 mg capsule take 2 capsule by oral route every day 06/29 completed Prescrib ed Elsewher e: Yes Loca tion: Nel maria teresa [facility] odify By: [email or web address] Encount er DateTime : 10/23/19 17 03:15:00 PM Not Available Not Available Not Available Vitamin D2 1,250 mcg (50,000 unit) capsule take 1 capsule by oral route every week 10/28 completed Prescrib ed Elsewher e: Yes Loca [facility]ion: [facility]ify By: [email or web address] trick En counter DateTime : 01/19/20 13 09:00:00 AM Not Available Not Available Not Available ondansetr on 4 mg disintegr ating tablet DISSOLVE 1 TABLET IN MOUTH AT BEDTIME THE EVENING BEFORE SURGERY 06/30 completed Not Available Not Available Not Available Celexa 40 mg tablet take 1 tablet by oral route every day 10/22 completed Prescrib ed Elsewher e: Yes [facility] By: [email or web address] Izquierdo ncounter DateTime : 10/29/19 16 01:30:00 PM Not Available Not Available Not Available Wellbutri n XL 300 mg 24 hr tablet, extended release take 1 tablet by oral route every day 06/30 completed Prescrib ed Elsewher e: Yes Loca tion: [facility] odify By: [email or web address] Encount er DateTime : 06/29/19 20 08:30:00 AM Not Available Not Available Not Available Calcium-5 00 500 mg (as calcium carbonate 1,250 mg) chewable tablet 2017 active Prescrib ed Elsewher e: Yes Loca tion: [facility] odify By: [email or web address] Izquierdo ncounter DateTime : 10/19/19 18 03:30:00 PM Not Available Not Available Not Available nitrofura ntoin monohydra te/macroc rystals 100 mg capsule TAKE 1 CAPSULE BY MOUTH TWICE DAILY 06/30 completed Not Available Not Available Not Available pregabali n 75 mg capsule TAKE 1 CAPSULE BY MOUTH TWICE DAILY FOR 7 DAYS. TO BEGIN WITH ONE CAPSULE AT BEDTIME THE EVENING BEFORE SURGERY 06/30 completed Not Available Not Available Not Available Calcio Diana 500 mg tablet 10/28 completed Prescrib ed Elsewher e: Yes Loca tion: [facility] odify By: [email or web address] trick En counter DateTime : 01/19/20 13 09:00:00 AM Not Available Not Available Not Available calcium 03/25 completed Not Available Not Available Not Available Lipitor 03/25 completed Not Available Not Available Not Available Wellbutri n 03/25 completed Not Available Not Available Not Available multivita min active Not Available Not Available Not Available Multi Vitamin 9 mg iron/15 mL oral liquid 03/25 completed Prescrib ed Elsewher e: Yes Loca tion: [facility] odify By: [email or web address] ncounter DateTime : 10/19/19 18 03:30:00 PM Not Available Not Available Not Available Vitals Date Recorded Body height Body mass index (BMI) Body weight Systolic blood pressure Diastolic blood pressure Provider Name and Address Organization Details Last Updated DateTime 03/25/2022 165.1 cm 22.3 kg/m2 92209.38 g 145 mm[Hg] 77 mm[Hg] [facility] 2 18:48:31 Date Recorded Body height Body mass index (BMI) Body weight Systolic blood pressure Diastolic blood pressure Provider Name and Address Organization Details Last Updated DateTime 06/30/2023 165.1 cm 23.6 kg/m2 72131.12 g 159 mm[Hg] 93 mm[Hg] [facility] 4 17:27:25 Date Recorded Body height Body mass index (BMI) Body weight Systolic blood pressure Diastolic blood pressure Provider Name and Address Organization Details Last Updated DateTime 07/19/2023 165.1 cm 23.6 kg/m2 64828.12 g 123 mm[Hg] 82 mm[Hg] [facility] 4 10:38:01 Date Recorded Body height Body mass index (BMI) Body weight Systolic blood pressure Diastolic blood pressure Provider Name and Address Organization Details Last Updated DateTime 07/29/2023 165.1 cm 23.6 kg/m2 80547.12 g 120 mm[Hg] 83 mm[Hg] [facility] 4 14:14:23 Date Recorded Body height Body mass index (BMI) Body weight Systolic blood pressure Diastolic blood pressure Provider Name and Address Organization Details Last Updated DateTime 08/05/2023 165.1 cm 23.6 kg/m2 45490.12 g 143 mm[Hg] 91 mm[Hg] Khadijah Pittman [facility] 4 17:20:29 Social History None recorded. Functional Status None recorded. Mental Status None recorded. Family History Relationship Description Onset Age of this Age Resolved Age Notes LastModified by Organization Details LastModified Time Mother Hypertensive disorder [email or web address] Not available 2019 16:15:20 Mother Hyperlipidem ia [email or web address] Not available 2019 16:15:34 Brother Hypertensive disorder [email or web address] Not available 2019 16:15:20 Brother Hyperlipidem ia [email or web address] Not available 2019 16:15:34 Brother Germ cell tumor [email or web address] Not available 2019 16:16:00 Sister Disorder of thyroid gland [email or web address] Not available 2019 16:15:47 Medical History Condition Response Allergies (Food, seasonal, environmental ) N Other N Breast Cancer N Drug/Latex Allergies/Reactions N Blood Transfusion N Dermatologic Disorders N Lung Disease N Defects or Inherited Disease N Breast Problem Y Gestational Diabetes N Hematologic disorders N Anesthesia Complications N History of STI N Deep Vein Thrombosis N Polycystic ovary syndrome N Anxiety Disorder Y Autoimmune disease N Arthritis N Infertility N Polyps N Acid Reflux (GERD) N History of abnormal pap N Cancer N Stroke N Varicosities N Neurologic/Epilepsy N Endometriosis N High Cholesterol Y Headaches N Fibromyalgia N Kidney Disease N Heart Problems N Kidney or Bladder Problems N Thyroid Problems N GI Problems N Eating Disorder N Anemia N Art (IVF or FET) N Psychiatric Illness N Ovarian Cancer N Diabetes N Pulmonary (TB, Asthma) N Hepatitis/Liver Disease N No Past Medical History N Eczema N Urinary Tract Infection N Abuse/Domestic Violence N Asthma N Trauma/Violence N Depression/ depression Y Heart Disease N Pre-Eclampsia N Hypertension N Osteoporosis N Thrombophilias N Gynecological History Statement/Question Response Date of Last Mammogram 11/19/2022 Date of LMP STIs/STDs N Date of DEXA bone scan Date of Last Pap Smear 07/19/2023 Current Control Method Menopause LMP Unknown Obstetrics History GPAL:G 1 P 0 0 0 2 Type Value Multiple Births 1 Living 2 Total 1 Past Encounters Encounter ID Performer Location Encounter Start Date Encounter Closed Date Diagnosis/Indication Diagnosis SNOMED-CT Code Diagnosis ICD10 Code Diagnosis Note [id number] Leonardo Edwards MD [place] [address],[facility] [place] [address] 03/05/2020 15:56:39 03/05/2020 16:59:04 Abnormal uterine bleeding [id number] 9100 N93.9 [id number] Leonardo Edwards MD [place] [address],[facility] [place] [address] 03/20/2020 17:17:53 03/20/2020 18:17:47 Abnormal uterine bleeding [id number] 9100 N93.9 D25.9 [id number] Leonardo Edwards MD [place] [address],[facility] [place] [address] 03/20/2020 17:18:26 03/21/2020 10:09:38 Abnormal uterine bleeding [id number] 9100 N93.9 D25.9 this patient is a 49-year-ol d female presents for ultrasound follow-up. Patient has abnormal uterine bleeding, rectal pressure, fibroid uterus, urinary urge. The patient had a pelvic ultrasound today that showed enlarged fibroid uterus. She has some prominent fibroids. Some fibroids project posteriorl y towards the rectum. She may have symptoms associated with the mass effect of these fibroids. We spent over 35 minutes face-to-fa ce. We talked about treatment options. We talked about menopause. We talked about medical and surgical treatments . patient currently has an IUD for heavy bleeding. But continues to have irregular bleeding. She is considerin g total laparoscop ic hysterecto my, she favors keeping her ovaries. She may call to schedule surgery. We will scheduleTL H [id number] Leonardo Edwards MD [place] [address] [address] 07/19/2023 10:17:21 07/19/2023 15:52:55 Abnormal uterine bleeding [id number] 9100 N93.9 D25.9 52-year-ol d female who presents for repeat Pap smear and follow-up on malpositio n of the uterus and postmenopa usal bleeding. We repeat her Pap smear. She was examined. The pelvic exam was normal. Discuss removal of IUD with hysterosco pe. I agreed to perform that in the office. Explained to her in detail. She understand s risks, benefits, and alternativ e is. She is ready to proceed. Talked about treatment of her bleeding. Mirena removal may be adequate for treatment of bleeding. Spent more than 20 minutes face-to-fa ce. More than 50% was counseling . [id number] Leonardo Edwards MD [place] [address] [address] 03/25/2022 18:23:49 03/26/2022 15:00:41 Gynecologic examination [id number] Z01.419 Annual gynecologi georgina exam performed. Patient will come back in a year unless there are new symptoms. Suggest Calcium with Vitamin D if not eating in diet. Patient advised to get annual flu shot. Recommend yearly physicals and preform monthly breast exams. Genetic testing is available for patients with family history of cancer. Engage in safe sexual practices, use condoms. Encouraged to have daily exercise. Avoid tobacco and illicit drugs, moderation of alcohol. If BMI greater than 25 dietary consult advised. If you have any questions please call or email. Mammogram - done Colonoscop y - considerin g Bone Density - done Cholestero l - [ ] Pap - today Menopausal symptom 76296 002 N95.1 [id number] Leonardo Edwards MD [place] [address] [address] 06/30/2023 16:47:56 06/30/2023 17:47:01 Gynecologic examination [id number] Z01.419 Z11.51 Annual gynecologi georgina exam performed. Patient will come back in a year unless there are new symptoms. Suggest Calcium with Vitamin D if [id number]|2024-11-03 11:23:00|2024-11-03 11:23:00|XMS_ITS|PRANEETH CANNON|External Medical Summaries|[id number]|" Clinical Summary Created on: November 03, 2024 LucinaDarrelgreysonmable : 10/24/2000 Sex: Male Author Organization [facility] Address [address] [place] [address] Care Team Providers Care Ribbon Cutter Name Role Phone Unavailable Primary Care Provider Unavailabl e Source Comments [facility] [employer],non-owned Affiliates and Associated Physician Practices is amultiple site organization consisting of ambulatory clinics and hospital sitesin [place], [place], [place] and [place]. This disclosure is being madepursuant to the Care Everywhere program and may not contain all information available regarding this patient. Last updated 18.[facility] [employer] Allergies No known active allergies Medications * Be aware that medications may not be up to date on this document. Alwaysverify current medications with the patient. dicyclomine (BENTYL) 10 MG capsule Take 1 (one) capsule by mouth 4 times daily as needed (for pain) 120 capsule 1 08/20/2021 Active Active Problems Problem Noted Date Diagnosed Date Elevated fecal calprotectin 08/20/2021 Abdominal pain 08/20/2021 Irritable bowel syndrome 10/30/2020 Social History Tobacco Use Types Packs/Day Years Used Date Smoking Tobacco: Never Smokeless Tobacco: Never Alcohol Use Standard Drinks/Week Comments Not Currently 0 (1 standard drink = 0.6 oz pur e alcohol) Sex and Gender Information Value Date Recorded Sex Assigned at Not on file Legal Sex Male 10:46 AM CDT Gender Identity Male 10/30/2020 9:15 AM CDT Sexual Orientation Not on file Last Filed Vital Signs Vital Sign Reading Time Taken Comments Blood Pressure 124/74 08/20/2021 8:59 AM CERTIFIED VETERINARY TECHNICIAN Pulse 77 08/20/2021 8:59 AM CERTIFIED VETERINARY TECHNICIAN Temperature 36.6 C (97.8 F) 11/22/2020 1:56 PM CDT Respiratory Rate 16 11/22/2020 2:10 PM CDT Oxygen Saturation 99% 08/20/2021 8:59 AM CERTIFIED VETERINARY TECHNICIAN Inhaled Oxygen Concentration - - Weight 76.2 kg (168 lb) 08/20/2021 8:59 AM CERTIFIED VETERINARY TECHNICIAN Height 182.9 cm (6') 11/22/2020 12:50 PM CDT Body Mass Index 22.78 11/22/2020 12:50 PM CDT Plan of Treatment Health Maintenance Due Date Last Done Comments HIV SCREENING 10/25/2015 HPV VACCINE (1 - Male 3-dose series) 10/25/2015 HEPATITIS C SCREENING 10/20/2018 DTAP/TDAP/TD VACCINES (1 - Tdap) 10/25/2019 HEPATITIS B VACCINE (1 of 3 - 19+ 3-dose series) 10/25/2019 COVID-19 VACCINE (1 - 2023-2 5 season) 2024 DEPRESSION SCREENING 06/21/2024 INFLUENZA VACCINE (Season Ended) 2025 ZOSTER VACCINE (1 of 2) 10/24/2050 HIB VACCINE Aged Out No longer eligi ble based on patient's age to complete this topic MENINGOCOCCAL (Group B) VACC INE SHARED DECISION-MAKING Aged Out No longer eligibl e based on patient's age to complete this topic MENINGOCOCCAL GROUPS A/C/Y/W VACCINE Aged Out No longer eligible b ased on patient's age to complete this topic PNEUMOCOCCAL VACCINE Aged Out No long er eligible based on patient's age to complete this topic Insurance [facility] "
--- OUTSIDE RECORDS SUMMARY | 2024-11-03 13:33 | XMS_ITS | Clinical Summary ---
Author Organization [facility] Address [address] [place] [address] Care Team Providers Care Wholesale Account Manager Name Role Phone James Vasquez MD Primary Care Provider Lucila Kapadia MD Unavailable [phone] Allergies No known active allergies Medications atorvastatin [...] (06/07/2019): Added automatically from request for surgery [id number] Fracture of nasal bone 02/29/2016 Nasal congestion 02/29/2016 Facial injury 02/28/2016 Facial pain 02/28/2016 Deviated nasal septum 02/28/2016 Uterine leiomyoma 11/21/2015 Benign neoplasm of skin 11/06/2011 Hyperlipidemia Encounters Date Type Department Care Team Description 10/25/2024 9:20 AM CDT Office Visit [facility] Endocrinology Metabolism and Lipid [address] [place] [address] [place] [address] Eduardo Stewart MD Macrocytosis (Primary Dx); Hypothyroidism, unspecified type; Abnormal thyroid exam 09/25/2024 12:26 PM CDT - 09/25/2024 11:59 PM CDT Hospital Encounter [address] [address] Discharge Disposition: Discharge to home or self care 09/25/2024 11:30 AM CDT Lab [facility] [place] - Lab Collection [address] [place] [address] from Last 3 Months Immunizations Immunization Administration Dates Next Due Influenza, Trivalent, Cell C ulture-based MDCK, Preservative Free, Antibiotic Free, Intramuscular 04/13/2024 Surgical History Surgery Date Site/Laterality Comments ID DELIVERY ONLY 06/21/2001 - 06/20/2002 Section - (Added by TW Conv) OTHER SURGICAL HISTORY 06/21/2019 - 06/20/2020 venectomy Medical History Medical History Date Comments Hyperlipidemia 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 with pain, right 9 Added automatically from request for surgery [id number] Nasal congestion 02/29/2016 Deviated nasal septum 02/28/2016 [...] on file Legal Sex Female 12:32 PM PRACTICE NURSE Gender Identity Not on file Sexual Orientation [...] this topic Medical Devices Implanted Type Area Special Education Superintendent Device Identifier Shelf Expiration Date Model / Serial / Lot [employer] 12.1cm High Strength Cohesive Plus Smooth P4.4cm Moderate Plus [id number] - [id number] - [id number] Implanted:Qty: 1 on 12/09/2022 by Lucila Kapadia MD at [facility] Breast Right: Breast [employer] 07/14/2024 [id number] / [id number] / [employer] 12.1cm High Strength Cohesive Plus Smooth P4.4cm Moderate Plus [id number] - [id number] - [id number] Implanted:Qty: 1 on 12/09/2022 by Lucila Kapadia MD at [facility] Left: Breast [employer] 11/22/2025 [id number] P / [id number] / Procedures Procedure Name Priority Date/Time Associated [...] ORDERABLES Final Res ult [facility]AIAH MARTINS [facility] [place] [address] * Differential, auto (09/25/2024 11:35 AM CDT) Neutrophil abs 3.31 1.50 - 6.50 K/cumm Imm gran abs 0.01 0.00 - 0.10 K/cumm [facility] Lymphocyte abs 1.60 0.80 - 3.30 K/cumm [facility] Monocyte abs 0.42 0.20 - 0.80 K/cumm [facility] Eosinophil abs 0.06 0.00 - 0.50 K/cumm [facility] Basophil abs 0.04 0.00 - 0.10 K/cumm [facility] Neutrophil pct 60.9 % [facility] Comment: Interpretive Data Percent cell count reference ranges are not reported, since discordance with absolute values may lead to misinterpretation of CBC data. Current Interpretive Data was last revised on 2017. Imm gran pct 0.2 % [facility] Comment: Interpretive Data Percent cell count reference ranges are not reported, since discordance with absolute values may lead to misinterpretation of CBC data. Current Interpretive Data was last revised on 2017. Lymphocyte pct 29.4 % [facility] Comment: Interpretive Data Percent cell count reference ranges are not reported, since discordance with absolute values may lead to misinterpretation of CBC data. Current Interpretive Data was last revised on 2017. Monocyte pct 7.7 % [facility] Comment: Interpretive Data Percent cell count reference ranges are not reported, since discordance with absolute values may lead to misinterpretation of CBC data. Current Interpretive Data was last revised on 2017. Eosinophil pct 1.1 % [facility] Comment: Interpretive Data Percent cell count reference ranges are not reported, since discordance with absolute values may lead to misinterpretation of CBC data. Current Interpretive Data was last revised on 2017. Basophil pct 0.7 % [facility] Comment: Interpretive Data Percent cell count reference ranges are not reported, since discordance with absolute values may lead to misinterpretation of CBC data. Current Interpretive Data was last revised on 2017. Blood 09/25/2024 11:3 5 AM CDT 09/25/2024 1:08 PM CDT us Notinfile Unknown LAB BLOOD ORDERABLES Final Res ult [facility] Department [place] [address] * (ABNORMAL) CBC with auto differential (09/25/2024 11:35 AM CDT) [facility] WBC 5.44 3.80 - 9.90 K/cumm Hgb 15.6(H) 11.9 - 15.5 g/dL [facility] Hct 46.5(H) 35.6 - 45.5 % [facility] Plt 222 150 - 400 K/cumm [facility] MPV 10.9 9.1 - 12.3 fL [facility] RBC 4.79 3.90 - 5.20 M/cumm [facility] MCV 97.1(H) 81.3 - 96.4 fL [facility] MCH 32.6 27.1 - 33.3 pg [facility] MCHC 33.5 32.3 - 35.7 g/dL [facility] RDW CV 12.9 11.1 - 14.9 % [facility] RDW SD 46.0 35.7 - 48.1 fL [facility] NRBC abs 0.00 0.00 - 0.01 K/cumm [facility] Blood 09/25/2024 11:3 5 AM CDT 09/25/2024 1:08 PM CDT us Notinfile Unknown LAB BLOOD ORDERABLES Final Res ult Performing Organization Address City/State/[facility] Co de Phone Number [facility] Department [place] [address] * Hepatitis C antibody Blood (09/25/2024 11:35 AM CDT) [facility] Hep C Ab Nonreactive Nonreactive Comment:Antibodies to HCV no t detected. Does NOT exclude the possibility of recent exposure to HCV. Current interpretive data was last revised on 22 Blood 09/25/2024 11:3 5 AM CDT 09/25/2024 1:09 PM CDT us Notinfile Unknown LAB MICROBIOLOGY - GENERAL ORD ERABLES Final Result [facility] [place] [address] * T3, free (09/25/2024 11:35 AM CDT) Free T3 2.0 2.0 - 4.4 pg/mL Blood 09/25/2024 11:3 5 AM CDT 09/25/2024 1:08 PM CDT us Notinfile Unknown LAB BLOOD ORDERABLES Final Res ult Performing Organization Address [facility] [place] [address] * TSH (09/25/2024 11:35 AM CDT) Thyroid Stimulating Hormone 0.64 0.30 - 4.20 mcIUnit/mL Blood 09/25/2024 11:3 5 AM CDT 09/25/2024 1:08 PM CDT us Notinfile Unknown LAB BLOOD ORDERABLES Final Res ult Performing Organization Address [facility] de Phone Number [facility] [place] [address] * (ABNORMAL) T4, free (09/25/2024 11:35 AM CDT) Free T4 0.87(L) 0.90 - 1.70 ng/dL Blood 09/25/2024 11:3 5 AM CDT 09/25/2024 1:08 PM CDT us Notinfile Unknown LAB BLOOD ORDERABLES Final Res ult Performing Organization Address [facility] Co de Phone Number [facility] [place] [address] * Lipid panel (09/25/2024 11:35 AM CDT) [...] on 2018. Triglycerides 51 <=149 mg/dL [facility] Comment: Interpretive Data Ages < or [...] revised on 2018. HDL 73 >=40 mg/dL [facility] Comment: Interpretive Data Ages < or [...] 2018. LDL, calculated 86 <=129 mg/dL [facility] Comment: Interpretive Data Ages < or [...] revised on 2024. Non-HDL Cholesterol 96 mg/dL [facility] Comment: Interpretive Data Ages < or [...] last revised on 2018. Chol/HDL ratio 2 [facility] Blood 09/25/2024 11:3 5 AM CDT 09/25/2024 1:08 PM CDT us Notinfile Unknown LAB BLOOD ORDERABLES Final Res ult [facility] Department [place] [address] * Comprehensive metabolic panel (09/25/2024 11:35 AM CDT) Sodium 143 135 - 145 mmol/L Potassium, pl 3.8 3.3 - 4.9 mmol/L [facility] Chloride 104 97 - 110 mmol/L [facility] CO2 31 22 - 32 mmol/L [facility] Anion gap 8 2 - 15 mmol/L [facility] BUN 9 6 - 25 mg/dL [facility] Creatinine 0.75 0.60 - 1.10 mg/dL [facility] Glucose 85 70 - 199 mg/dL [facility] Comment: Interpretive Data Fasting glucose >/= [...] 2022. Calcium 9.2 8.5 - 10.3 mg/dL [facility] Bilirubin, total 0.5 0.1 - 1.2 mg/dL [facility] Protein, pl 7.4 6.5 - 8.5 g/dL [facility] Albumin 4.3 3.5 - 5.0 g/dL [facility] Alk phos 56 40 - 130 Units/L [facility] ALT 25 7 - 45 Units/L [facility] AST 28 10 - 45 Units/L [facility] Blood 09/25/2024 11:3 5 AM CDT 09/25/2024 1:08 PM CDT us Notinfile Unknown LAB BLOOD ORDERABLES Final Res ult [facility] Department [place] [address] * Screening Mammogram Bilateral W Ronak W [...] Most Recently Relevant to Health Maintenance Insurance [facility] [employer] [facility]/PPO Address: [place] [phone] [employer] [facility] H[facility]/PPO Address: [place] [phone] [employer] [facility] [employer]/PPO Address: [place] [address] Care Teams Wholesale Account Manager Relationship Specialty Start Date End Date James Vasquez MD PCP - General 09/16/16 Lucila Kapadia MD [address] [facility] [address] [place] [address] Referring Physician Plastic Surgery 12/09/22
== END 2024-11-03 13:43 | disposition home or self-care (01) ==
PROVIDERS: Emergency Provider Emergency Medicine; PCP Family Medicine
DX: S16.1XXA Strain of muscle, fascia and tendon at neck level, initial encounter (principal); V44.5XXA Car driver injured in collision with heavy transport vehicle or bus in traffic accident, initial encounter
CPT/HCPCS: 72125; 99284; L0140